=== PATIENT | female | born 1950 | race Caucasian/White ===

== ENCOUNTER 2018-12-11 06:13 | Day surgery (SDC) ==
[2018-12-11] MEDS: TETRACAINE 0.5% UNIT-DOSE OP PRN ×2 (06:30→07:14)
[2018-12-11] MEDS: BETADINE OPTH PREP OP PRN ×2 (06:30→07:14)
[2018-12-11] MEDS: CYCLOGYL 2% OPTH OP PRN ×2 (06:35→06:40)
[2018-12-11 06:38] VITALS: TEMP 97
[2018-12-11] MEDS ORDERED: ZOFRAN 4 MG/2 ML IVP ONE (06:40)
[2018-12-11] MEDS ORDERED: BSS WITH EPINEPHRINE OP ONE (06:40)
[2018-12-11] MEDS ORDERED: BRIMONIDINE TARTRATE 0.2% OPTH SOL OP PRN (06:40)
[2018-12-11] MEDS ORDERED: LIDOCAINE 1%/PHENYLEPHRINE 1.5% BSS (SURGERY) INTRAOCULA ONE (06:40)
[2018-12-11] MEDS ORDERED: DEX-MOXI-KETOR OPTH INJ 1/0.5/0.4 MG/ML IO ONE (06:40)
[2018-12-11] MEDS ORDERED: LIDOCAINE 1% 20 ML MDV ID ONE (06:45)
[2018-12-11] MEDS ORDERED: ZOFRAN 4 MG/2 ML ONE (07:00)
[2018-12-11] MEDS ORDERED: VERSED ONE (07:00)
[2018-12-11 14:16] VITALS: BP 132/55
== END 2018-12-11 08:00 | disposition home or self-care (01) ==
LOC: SURG 06:13
PROVIDERS: ATTEND Ophthalmology
DX: H25.12 Age-related nuclear cataract, left eye (principal)